=== PATIENT | female | born 1965 | race Caucasian/White ===

== ENCOUNTER → 2017-03-11 | Outpatient (CLI) | payer MEDICAID ==
--- NOTE | 2017-03-11 14:40 | XR ---
EXAMINATION TYPE: XR lumbosacral spine min 4V DATE OF EXAM: 03/11/2017 COMPARISON: NONE HISTORY: 52-year-old female with low back pain radiating down the right leg TECHNIQUE: 5 views FINDINGS: Leftward truncal shift may be positional. Mild multilevel degenerative disc disease with endplate spo ndylosis and mild disc space narrowing. There is grade 1 retrolisthesis at L1-L2 and L2-L3 and multil evel facet arthropathy. Vertebral body heights are preserved. IMPRESSION: 1. Leftward truncal shift could be positional or due to pain/muscle spasm. 2. Multilevel facet arthropathy with grade 1 retrolisthesis at L1-L2 and L2-L3. 3. Mild multilevel degenerative disc disease. 4. No vertebral compression collapse.
== END | disposition home or self-care (01) ==
LOC: RADXRMAIN 14:08
PROVIDERS: ATTEND Family Medicine
DX: M43.16 Spondylolisthesis, lumbar region (principal); M51.36 Other intervertebral disc degeneration, lumbar region; M46.86 Other specified inflammatory spondylopathies, lumbar region
CPT/HCPCS: 72110

== ENCOUNTER → 2017-03-26 | Outpatient (CLI) | payer MEDICAID ==
--- NOTE | 2017-03-26 12:55 | US ---
EXAMINATION TYPE: US transvaginal DATE OF EXAM: 03/26/2017 COMPARISON: NONE CLINICAL HISTORY: 52-year-old female N95.9,R14.0, ABD DISTENSION, MENOPAUSAL DISORDER. TECHNIQUE: Transvaginal (TV) FINDINGS: Date of LMP: December 2016 Uterus: Anteverted measuring 8.9 x 4.7 x 5.8 cm. Cervical nabothian cysts are present. Endometrial Stripe: 1.6 cm, upper limits of normal in thickness for a premenopausal female. Right Ovary: 3.4 x 2.4 x 3.7 cm with a 2.4 cm dominant follicle or functional cyst. Left Ovary: 3.3 x 2.1 x 2.7 cm with a 2.2 cm dominant follicle or functional cyst. No evident adnexal abnormality or cul-de-sac free fluid. IMPRESSION: 1. The endometrial stripe measures 1.6 cm. In a premenopausal female, this would correspond to the la te secretory phase of the menstrual cycle. In a postmenopausal female, this would be abnormal and fur ther evaluation would be warranted. Clinically correlate. 2. Cysts in both ovaries measuring up to 2.4 cm. If premenopausal, these suggest dominant follicles o r functional cysts. Follow-up in 6-8 weeks to reassess as clinically indicated.
== END | disposition home or self-care (01) ==
LOC: RADUSWWP 11:55
PROVIDERS: ATTEND Family Medicine
DX: N83.201 Unspecified ovarian cyst, right side (principal); N83.202 Unspecified ovarian cyst, left side; N95.9 Unspecified menopausal and perimenopausal disorder; M54.5 Low back pain; R14.0 Abdominal distension (gaseous)
CPT/HCPCS: 76830

== ENCOUNTER → 2017-11-12 | Outpatient (CLI) | payer MEDICAID ==
--- NOTE | 2017-11-12 11:48 | MR ---
EXAMINATION TYPE: MR lumbar spine wo con DATE OF EXAM: 11/12/2017 COMPARISON: Plain film 03/11/2017 HISTORY: Low back pain TECHNIQUE: Multiplanar, multisequence images of the lumbar spine were acquired. L1-L2: Broad-based posterior disc bulge causes mild anterior mass effect on the thecal sac. No signif icant central stenosis or foraminal. L2-L3: Posterior broad-based disc bulge causes minimal anterior mass effect on the thecal sac, no sig nificant central stenosis. No foraminal encroachment. L3-L4: No evident disc herniation or foraminal encroachment, no central stenosis. Facet arthropathy w ith hypertrophy ligamentum flavum is noted. L4-L5: Facet arthropathy with hypertrophy ligamentum flavum encroaches somewhat on the lateral recess es. No significant central stenosis, sizable disc herniation, or significant central stenosis. L5-S1: Normal disc appearance without desiccation. No herniation, protrusion or disc bulging. No ca nal stenosis is present. Foramina are patent bilaterally. Lumbar segments are intact. No paraspinal masses are identified. Conus medullaris has a normal appe arance. Curvature may be indicative of scoliosis. Minimal endplate discogenic marrow signal changes, spondylosis present at multiple levels, there is associated loss of disc height signal greatest at L1 -2. IMPRESSION: There may be underlying scoliosis. Mild degenerative disc disease, facet arthropathy.
--- NOTE | 2017-11-12 12:38 | MR ---
MR right hip HISTORY: Right hip pain Multiplanar multisequence imaging obtained through the pelvis. Small [id number] images obtained th rough the right hip. Comparison pelvic ultrasound 03/26/2017 Articular cartilage signal is maintained. No sizable joint effusion. No marrow edema. Small cystic fo ci are present within the posterior humeral head in the subchondral location possibly geodes. No evid ent labral tear. Both cysts present in the cervix. Small amount of free fluid is present within the pelvis. Sacroiliac joints appear intact. 3.7 cm cystic focus is present within the left adnexal region. This is increased in size from prior e xam when it measured 2.3 x 2.4 x 2.1 cm. IMPRESSION: Small geodes suggestive of underlying osteoarthritic change in the posterior right hip. I ndeterminate enlarging cystic left ovarian mass, follow-up is recommended, consider [facility] consult
== END | disposition home or self-care (01) ==
LOC: RADMRIMAIN 08:28
PROVIDERS: ATTEND Family Medicine
DX: M51.36 Other intervertebral disc degeneration, lumbar region (principal); M46.86 Other specified inflammatory spondylopathies, lumbar region; M16.11 Unilateral primary osteoarthritis, right hip
CPT/HCPCS: 72148

== ENCOUNTER → 2017-12-03 | Outpatient (CLI) | payer MEDICAID ==
[2017-12-03 11:18] VITALS: BP 142/68; TEMP 96.3; BMI 24.4
--- NOTE | 2017-12-03 12:24 | P.HPOB ---
History of Present Illness H&P Date: 12/03/17 Chief Complaint: The patient is here for routine gynecologic exam and mammogram. This is a 52-year-old with an LMP of 07/2017. The patient states that has been approximately 2 years since her last pelvic exam. She believes she is going through a menopausal change because of changes in her periods and hot flashes. In January 2017 she started having hot flashes. She missed periods in January and February of last year. The were again regular from about March to July. She has also been having intermittent right pelvic discomfort at times she thought was at the times of ovulation. She had a pelvic ultrasound on 2016 which showed bilateral ovarian cysts measuring 2.4 cm on the right and 2.2 cm on the left. These were consistent with functional cysts. She had an MRI on 11/12/2017 which showed a 3.7 cm left ovarian cyst. The MRI was done because of some right back and hip discomfort. The right pelvic pain is intermittent and is rated at a 2 out of 10 at this time. She states hot flashes have improved and she has not had any during the last one month. Review of Systems She is getting about 7 pounds over the last year. She denies respiratory, cardiac, or G.I. problems. Past Medical History Past Medical History: Asthma History of Any Multi-Drug Resistant Organisms: None Reported Additional Past Surgical History / Comment(s): D&C times 2 with miscarriages. Smoking Status: Never smoker Past Alcohol Use History: Occasional (About 5 drinks per month.) Past Drug Use History: None Reported - Past Family History Mother Family Medical History: Cancer (Breast Cancer uterine cancer and small cell cancer.) Medications and Allergies Home Medications Medication Instructions Recorded Confirmed Type Albuterol Inhaler [Ventolin Hfa PRN MDD 1 12/03/17 History Inhaler] Budesonide/Formoterol Fumarate 12/03/17 History [Symbicort 160-4.5 Mcg Inhaler] Allergies Allergy/AdvReac Type Severity Reaction Status Date / Time No Known Allergies Allergy Verified 12/03/17 11:18 Exam - Vital Signs Vital signs: Vital Signs Temp BP 12/03/17 11:14 96.3 F L 142/68 Intake and Output 12/02/17 12/03/17 12/03/17 22:59 06:59 14:59 Other: Weight 66.678 kg Height 5'5" BMI 24.5, pulse 68, tempter 96.3. This is a well-developed well-nourished white female who is alert and oriented times 3 in no acute distress. HEENT: Within normal limits. NECK: Supple without mass or thyromegaly. CHEST AND LUNGS: Clear to auscultation. HEART: Regular rate and rhythm. BREASTS: Are without mass or discharge. AXILLARY EXAM: Negative for adenopathy. BACK: Negative for CVA tenderness. ABDOMEN: Soft, nontender, without palpable masses. PELVIC EXAM: Normal external genitalia. Cervix and vagina appear normal. There is no cervical motion tenderness. There is no unusual discharge. There is no evidence of prolapse. The uterus is midposition, nongravid size and nontender. There are no palpable adnexal masses or tenderness. RECTAL EXAM: recto vaginal exam is negative for mass or tenderness and is negative for occult blood. EXTREMITIES: Nontender. IMPRESSION: 1. 52 year old. Menopausal female with intermittent oligomenorrhea. 2. The patient's 's status post vasectomy. 3. Intermittent right pelvic pains with recent finding of a left ovarian cyst by MRI 3 weeks ago. The cyst measured 3.7 cm on the left side. PLAN: 1. Pap smear was performed. 2. Self breast examination was discussed. 3. Screening mammogram will be done today. 4. Pelvic ultrasound will be scheduled in approximately 3 to 4 weeks to follow up on the left ovarian cyst noted by MRI. 5. The patient will keep a menstrual calendar and symptom calendar. 6. I have recommended screening colonoscopy based on her age. 7. The patient will return in one year and PRN
--- NOTE | 2017-12-04 10:50 | MM ---
Reason for exam: screening (asymptomatic). Last mammogram was performed 1 year and 3 months ago. History: Family history of breast cancer in mother at age 72. US discontinued breast bx RT of the right breast, August 14, 2015. Physical Findings: A clinical breast exam by your physician is recommended on an annual basis and results should be correlated with mammographic findings. MG 3D Screening Mammo W/Cad Bilateral CC and MLO view(s) were taken. Prior study comparison: September 06, 2016, bilateral MG 3d diag mammo w/cad TEN. July 26, 2015, right breast MG 3d work up w/cad RT. The breast tissue is heterogeneously dense. This may lower the sensitivity of mammography. There is no discrete abnormality. No significant changes when compared with prior studies. ASSESSMENT: Negative, BI-RAD 1 RECOMMENDATION: Routine screening mammogram of both breasts in 1 year.
== END | disposition home or self-care (01) ==
LOC: WWCWWP 10:43
PROVIDERS: ATTEND Obstetrics & Gynecology
DX: Z12.31 Encounter for screening mammogram for malignant neoplasm of breast (principal)
CPT/HCPCS: 77063; 77067

== ENCOUNTER → 2018-01-12 | Outpatient (CLI) | payer MEDICAID ==
--- NOTE | 2018-01-12 15:17 | US ---
EXAMINATION TYPE: US pelvis complete transvag DATE OF EXAM: 01/12/2018 COMPARISON: MRI dated 11/12/2017 and pelvic ultrasound dated 03/26/2017. CLINICAL HISTORY: R10.2 Pelvic pain/n83.20 Previous ovarian cyst. Ovarian cyst seen on MRI TECHNIQUE: Transvaginal (TV) and Transabdominal (TA) . Transabdominal sonographic images of the pel vis were acquired. Transvaginal sonographic images were medically necessary to better assess the fol lowing anatomy: Ovaries Date of LMP: 01/07/2018 EXAM MEASUREMENTS: Uterus: 8.7 x 3.8 x 4.8 cm Endometrial Stripe: 0.6 cm Right Ovary: 2.1 x 0.9 x 1.8 cm Left Ovary: 2.3 x 1.9 x 1.4 cm 1. Uterus: Anteverted Heterogeneous with small, hypoechoic lesion posterior fundus= 1.0 x 0.7 x 0.8 cm/ Nabothian cysts in cervix 2. Endometrium: wnl 3. Right Ovary: wnl 4. Left Ovary: wnl, cystic lesion seen on MRI not visualized on US. This has likely resolved in the interim. 5. Bilateral Adnexa: wnl 6. Posterior cul-de-sac: wnl IMPRESSION: 1. The previously seen upper limits of normal endometrial thickness has resolved and is no longer upp er limits of normal. Endometrial thickness measures 6 mm and is within normal limits. 2. Exophytic intramural or subserosal posterior fundal uterine probable leiomyoma measuring 1.0 cm. 3. Resolution the previously seen ovarian cyst/cysts. These have resolved in the interim.
== END | disposition home or self-care (01) ==
LOC: RADUSWWP 14:26
PROVIDERS: ATTEND Obstetrics & Gynecology
DX: R10.2 Pelvic and perineal pain (principal); Z87.448 Personal history of other diseases of urinary system
CPT/HCPCS: 76830; 76856

== ENCOUNTER → 2019-06-15 | Outpatient (CLI) | payer MEDICAID ==
[2019-06-15 14:24] VITALS: BP 145/81; PULSE 56; RESP 16; TEMP 97.9; BMI 23.6
--- NOTE | 2019-06-15 15:09 | P.HPOB ---
History of Present Illness H&P Date: 06/15/19 Chief Complaint: The patient is here for her routine gynecologic exam and ma mmogram. This is a 54-year-old [id number] with an LMP of 05/2018. She has had mild hot flashes. She has been taking a supplement called Menocare which seems to help with the hot flashes. She is otherwise without complaints. She has not had any vaginal bleeding for more than 12 months. Review of Systems The patient has lost 4 pounds over the last year. She denies respiratory, cardiac, or G.I. problems. Past Medical History Past Medical History: Asthma Additional Past Medical History / Comment(s): PAST [employer] HISTORY: She has no history of STDs. History of Any Multi-Drug Resistant Organisms: None Reported Additional Past Surgical History / Comment(s): D&C times 2 with miscarriages. Past Psychological History: No Psychological Hx Reported Smoking Status: Never smoker Past Alcohol Use History: Occasional (0-8 per month) Past Drug Use History: None Reported Additional History: She is . 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 - Past Family History Mother Family Medical History: Cancer Additional Family Medical History / Comment(s): Breast cancer and uterine cancer and small cell cancer. Medications and Allergies Home Medications Medication Instructions Recorded Confirmed Type Albuterol Inhaler [Ventolin Hfa 2 inhalation PO DAILY PRN MDD 1 12/03/17 06/15/19 History Inhaler] Budesonide/Formoterol Fumarate 1 inhalation PO DAILY 12/03/17 06/15/19 History [Symbicort 160-4.5 Mcg Inhaler] Menocare Menopause Supplement 2 tab PO DAILY 06/15/19 06/15/19 History Allergies Allergy/AdvReac Type Severity Reaction Status Date / Time No Known Allergies Allergy Verified 06/15/19 14:26 Exam Vital Signs Temp Pulse Resp BP Pulse Ox 06/15/19 14:22 97.9 F 56 L 16 145/81 99 Intake and Output 06/15/19 06/15/19 06/15/19 06:59 14:59 22:59 Other: Weight 64.41 kg Height 5 feet 5 inches, weight 142 pounds, BMI 23.6. This is a well-developed well-nourished white female who is alert and oriented times 3 in no acute distress. HEENT: Within normal limits. NECK: Supple without mass or thyromegaly. CHEST AND LUNGS: Clear to auscultation. HEART: Regular rate and rhythm. BREASTS: Are without mass or discharge. AXILLARY EXAM: Negative for adenopathy. BACK: Negative for CVA tenderness. ABDOMEN: Soft, nontender, without palpable masses. PELVIC EXAM: Normal external genitalia. Cervix and vagina appear normal. There is no unusual discharge. There is no evidence of prolapse. The uterus is midposition, nongravid size and nontender. There are no palpable adnexal masses or tenderness. RECTAL EXAM: Rectovaginal exam is negative for mass or tenderness and is negative for occult blood. EXTREMITIES: Nontender. IMPRESSION: 1. 54-year-old menopausal female with mild vasomotor symptoms and normal gynecologic exam. 2. History of ASCUS Pap smear with negative high-risk HPV testing on 12/03/2017. PLAN: 1. Pap smear was deferred. Pap smear cotest will be done in one to 2 years. 2. Self breast awareness was discussed with the patient. 3. Screening mammogram will be done today. 4. Osteoporosis prevention was discussed. I have stressed the importance of adequate calcium, vitamin D and regular exercise. Recommended amounts of calcium and vitamin D were also discussed. 5. I have recommended screening colonoscopy based on her age. She has never had this done. She was instructed to contact her primary care physician's office to help arrange for this. 6. She was advised to return in one year for her annual well woman exam.
--- NOTE | 2019-06-16 13:50 | MM ---
Reason for exam: screening (asymptomatic). Last mammogram was performed 1 year and 6 months ago. History: Family history of breast cancer in mother at age 72. US discontinued breast bx RT of the right breast, August 14, 2015. Physical Findings: A clinical breast exam by your physician is recommended on an annual basis and results should be correlated with mammographic findings. MG 3D Screening Mammo W/Cad Bilateral CC and MLO view(s) were taken. Prior study comparison: December 03, 2017, bilateral MG 3d screening mammo w/cad. September 06, 2016, bilateral MG 3d diag mammo w/cad TEN. The breast tissue is heterogeneously dense. This may lower the sensitivity of mammography. There is no discrete abnormality. No significant changes when compared with prior studies. ASSESSMENT: Negative, BI-RAD 1 RECOMMENDATION: Routine screening mammogram of both breasts in 1 year.
== END | disposition home or self-care (01) ==
LOC: WWCWWP 13:59
PROVIDERS: ATTEND Obstetrics & Gynecology
DX: Z12.31 Encounter for screening mammogram for malignant neoplasm of breast (principal)
CPT/HCPCS: 77063; 77067

== ENCOUNTER → 2021-01-26 | Outpatient (CLI) | payer MEDICAID ==
--- NOTE | 2021-01-31 12:16 | MM ---
Reason for exam: screening (asymptomatic). Last mammogram was performed 1 year and 7 months ago. History: Patient is postmenopausal. Family history of breast cancer in mother at age 72. US discontinued breast bx RT of the right breast, August 14, 2015. Physical Findings: A clinical breast exam by your physician is recommended on an annual basis and results should be correlated with mammographic findings. MG 3D Screening Mammo W/Cad Bilateral CC and MLO view(s) were taken. Prior study comparison: June 15, 2019, bilateral MG 3d screening mammo w/cad. December 03, 2017, bilateral MG 3d screening mammo w/cad. The breast tissue is heterogeneously dense. This may lower the sensitivity of mammography. ASSESSMENT: Benign, BI-RAD 2 RECOMMENDATION: Routine screening mammogram of both breasts in 1 year.
== END | disposition home or self-care (01) ==
LOC: RADMAMWWP 14:07
PROVIDERS: ATTEND Family Medicine
DX: Z12.31 Encounter for screening mammogram for malignant neoplasm of breast (principal); Z78.0 Asymptomatic menopausal state; Z80.3 Family history of malignant neoplasm of breast
CPT/HCPCS: 77063; 77067

== ENCOUNTER → 2021-07-11 | Outpatient (CLI) | payer MEDICAID, OTHER | END | disposition home or self-care (01) | LOC: LABWHC1 08:37 | PROVIDERS: ATTEND Emergency Medicine | DX: Z20.822 Contact with and (suspected) exposure to COVID-19 (principal) | CPT/HCPCS: 87635 ==

== ENCOUNTER → 2021-07-12 | Outpatient (CLI) | payer MEDICAID, OTHER | END | disposition home or self-care (01) | LOC: LABWHC1 08:49 | PROVIDERS: ATTEND Emergency Medicine | DX: Z20.822 Contact with and (suspected) exposure to COVID-19 (principal) | CPT/HCPCS: 87635 ==

== ENCOUNTER → 2021-08-30 | Outpatient (CLI) | payer MEDICAID, OTHER | END | disposition home or self-care (01) | LOC: LABWHC1 13:34 | PROVIDERS: ATTEND Emergency Medicine | DX: U07.1 COVID-19 (principal) | CPT/HCPCS: 87635 ==

== ENCOUNTER → 2022-10-16 | Outpatient (CLI) | payer MEDICAID ==
--- NOTE | 2022-10-17 08:57 | MM ---
Reason for Exam: Screening (asymptomatic). Last mammogram was performed 1 year(s) and 9 month(s) ago. Patient History: Menarche at age 15. First Full-Term at age 26. Postmenopausal. 08/14/2015, US discontinued breast bx RT on the right side. Mother had breast cancer, age 72. Risk Values: Mary 5 year model risk: 2.2%. NCI Lifetime model risk: 14.0%. Prior Study Comparison: 12/03/2017 Bilateral Screening Mammogram, [facility]. 06/15/2019 Bilateral Screening Mammogram, [facility]. 01/26/2021 Bilateral Screening Mammogram, [facility]. Tissue Density: The breast tissue is heterogeneously dense. This may lower the sensitivity of mammography. Findings: Analyzed By CAD. There is no suspicious group of microcalcifications or new suspicious mass in either breast. Benign-appearing calcifications within vessels in the lateral aspect on CC view of the right breast. Overall Assessment: Benign, BI-RAD 2 Management: Screening Mammogram of both breasts in 1 year. A clinical breast exam by your physician is recommended on an annual basis and results should be correlated with mammographic findings. [facility] will attempt to contact patient to return for supplemental views and ultrasound if indicated. Electronically signed and approved by: Jarred Emmanuel DO
== END | disposition home or self-care (01) ==
LOC: RADMAMWWP 15:51
PROVIDERS: ATTEND Family Medicine
DX: Z12.31 Encounter for screening mammogram for malignant neoplasm of breast (principal); Z78.0 Asymptomatic menopausal state; Z80.3 Family history of malignant neoplasm of breast
CPT/HCPCS: 77063; 77067

== ENCOUNTER → 2022-10-16 | Outpatient (CLI) | payer MEDICAID ==
--- NOTE | 2022-10-16 15:46 | XR ---
EXAMINATION TYPE: XR lumbosacral spine min 4V DATE OF EXAM: 10/16/2022 CLINICAL HISTORY: pain COMPARISON: NONE TECHNIQUE: Frontal, lateral, and oblique images of the lumbar spine are obtained. FINDINGS: There are 5 lumbar type vertebral bodies identified. The lumbar spine shows satisfactory alignment without evidence of acute fracture or dislocation. Vertebral body heights are within normal limits. Disc spaces are well preserved. The overlying soft tissue appears unremarkable. IMPRESSION: No acute fracture or dislocation is seen in the lumbar spine.ICD 10 NO FRACTURE, INITIAL EVALUATION
== END | disposition home or self-care (01) ==
LOC: RADXRMAIN 15:24
PROVIDERS: ATTEND Nurse Practitioner Family
DX: M54.50 Low back pain, unspecified (principal)
CPT/HCPCS: 72110

== ENCOUNTER → 2024-01-29 | Outpatient (CLI) | payer MEDICAID ==
--- NOTE | 2024-02-01 20:36 | MM ---
Reason for Exam: Screening (asymptomatic). Last mammogram was performed 1 year(s) and 3 month(s) ago. Patient History: Menarche at age 15. First Full-Term at age 26. Postmenopausal. 08/14/2015, US discontinued breast bx RT on the right side. Mother had breast cancer, age 72. Risk Values: Mary 5 year model risk: 2.3%. NCI Lifetime model risk: 13.7%. Prior Study Comparison: 06/15/2019 Bilateral Screening Mammogram, [facility]. 01/26/2021 Bilateral Screening Mammogram, [facility]. 10/16/2022 Bilateral MG 3D screening mammo w/cad, [facility]. Tissue Density: The breasts are heterogeneously dense, which may obscure small masses. Findings: Analyzed By CAD. There is no suspicious group of microcalcifications or new suspicious mass in either breast. Overall Assessment: Negative, BI-RAD 1 Management: Screening Mammogram of both breasts in 1 year. . Patient should continue monthly self-breast exams. A clinical breast exam by your physician is recommended on an annual basis. This exam should not preclude additional follow-up of suspicious palpable abnormalities. Note on Mary scores and lifetime risk: 1. A Mary score greater than 3% is considered moderate risk. If this is the case, consider specialist referral to assess eligibility for a risk reducing agent. 2. If overall lifetime risk for the development of breast cancer is 20% or higher, the patient may qualify for future screening with alternating mammogram and breast MRI. Electronically signed and approved by: Luis Fernando Mcguire M.D. Radiologist
== END | disposition home or self-care (01) ==
LOC: RADMAMWWP 16:33
PROVIDERS: ATTEND Family Medicine
DX: Z12.31 Encounter for screening mammogram for malignant neoplasm of breast (principal); Z80.3 Family history of malignant neoplasm of breast; Z78.0 Asymptomatic menopausal state
CPT/HCPCS: 77063; 77067

== ENCOUNTER → 2025-01-26 | Outpatient (CLI) | payer MEDICAID ==
[2025-01-26 18:48] LABS: Chol/HDL Ratio 1.88 Ratio; Estradiol <20.0 pg/mL; LDL Cholesterol,Calculated 88.1 mg/dL (0.0-131.0); T4, Free (Free Thyroxine) 1.05 ng/dL (0.80-1.80); Testosterone <10.00 ng/dL (7.00-45.62); VLDL Calculation 7.92 mg/dL (5.00-40.00)
[2025-01-26 18:55] LABS: Follicle Stimulating Hormone 72.1 mIU/mL
== END | disposition home or self-care (01) ==
LOC: LABWHC1 11:26
PROVIDERS: ATTEND Obstetrics & Gynecology Obstetrics
DX: N95.1 Menopausal and female climacteric states (principal); N95.2 Postmenopausal atrophic vaginitis; R53.83 Other fatigue; R61 Generalized hyperhidrosis
CPT/HCPCS: 36415; 80061; 82306; 82607; 82670; 83001; 84144; 84403; 84439; 84443

== ENCOUNTER → 2025-01-27 | Outpatient (CLI) | payer MEDICAID ==
--- NOTE | 2025-01-27 14:11 | MM ---
Reason for Exam: Screening (asymptomatic). Last screening mammogram was performed 12 month(s) ago. Patient History: Menarche at age 15. First Full-Term at age 26. Postmenopausal. 08/14/2015, US discontinued breast bx RT on the right side. Mother had breast cancer, age 72. Risk Values: Mary 5 year model risk: 2.4%. NCI Lifetime model risk: 13.4%. Prior Study Comparison: 01/26/2021 Bilateral Screening Mammogram, [facility]. 10/16/2022 Bilateral MG 3D screening mammo w/cad, [facility]. 01/29/2024 Bilateral MG 3D screening mammo w/cad, [facility]. Tissue Density: The breasts are heterogeneously dense, which may obscure small masses. Findings: Analyzed By CAD. Benign-appearing Vascular calcification in the right breast is redemonstrated. There is no suspicious group of microcalcifications or new suspicious mass in either breast. Overall Assessment: Negative, BI-RAD 1 Management: Screening Mammogram of both breasts in 1 year. . Patient should continue monthly self-breast exams. A clinical breast exam by your physician is recommended on an annual basis. This exam should not preclude additional follow-up of suspicious palpable abnormalities. Note on Mary scores and lifetime risk: 1. A Mary score greater than 3% is considered moderate risk. If this is the case, consider specialist referral to assess eligibility for a risk reducing agent. 2. If overall lifetime risk for the development of breast cancer is 20% or higher, the patient may qualify for future screening with alternating mammogram and breast MRI. [facility], , 01/27/2025 2:08 PM. Electronically signed and approved by: Kash Patel M.D.
== END | disposition home or self-care (01) ==
LOC: RADMAMWWP 13:12
PROVIDERS: ATTEND Obstetrics & Gynecology Obstetrics
DX: Z12.31 Encounter for screening mammogram for malignant neoplasm of breast (principal); R92.333 Mammographic heterogeneous density, bilateral breasts; R92.1 Mammographic calcification found on diagnostic imaging of breast; Z78.0 Asymptomatic menopausal state; Z80.3 Family history of malignant neoplasm of breast
CPT/HCPCS: 77063; 77067